=== PATIENT | male | born 1955 | race Caucasian/White ===

== ENCOUNTER 2017-06-26 04:36 | Inpatient (IN) | payer MEDICARE, OTHER ==
[~2017-06-26] VITALS: Ht 198.1 cm; Wt 137.0 kg
[~2017-06-26 04:36] MED LIST: ACTOS30 MG PO; ALBUTEROL0.09 MG/A1 IH; ASPIRIN 81MG TA81 MG PO; ASPIRIN EC325 MG PO; BAYER ASPIRIN R81 MG PO; BUPROPION75 MG PO; CEFUROXIME500 MG PO; COREG6.25 MG PO; COUMADIN5 MG PO; DIAZEPAM10 MG PO; EFFIENT10 M2 PO; HUMALOG KW100 UNIT/1 SQ; HUMALOG MIX 50/53 ML SC; HUMALOG PEN100 U/ML SC; LANTUS SOLOS100 U/ML SC; LEVAQUIN500 MG PO; LIPITOR40 MG PO; LOVENOX 150150 MG/ML SC; NITRO-DUR0.4 MG/HR TD; Novolog100 U/ML SC; OXYCONTIN 20MG.20 MG PO; OXYCONTIN60 M1 PO; PERCOCET 10 MG1 EACH PO; PERCOCET1 TA1 PO; PREDNISONE 20MG20 MG PO; WELLBUTRIN 150150 MG PO; ZOLOFT100 MG PO; ZYVOX600 MG PO
[2017-06-26 04:44] VITALS: BP 102/43
[2017-06-26 05:24] LABS: LYMPH # 1.3 K/mm3 (0.7-4.5); LYMPH % 9.2 % (10-50)
[2017-06-26 05:35] LABS: HEMOGLOBIN 13.9 g/dL (14.1-18.0)
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
--- NOTE | 2017-06-26 07:54 | RADIOLOGY REPORT PS360 ---
CHEST-PORTABLE COMPARISON: Oral upright chest 03/01/2015 HISTORY: Shortness of breath TECHNIQUE: Portable upright chest FINDINGS: The lung lowe are well expanded. There are somewhat coarsened bronchovascular markings in right perihilar region and right lower lobe probably representing chronic change and/or post inflammatory scarring. Would be difficult to rule out a minimal superimposed pneumonic infiltrate. The right upper lung field and cardiac size is normal, there is no significant pulmonary congestion. Left lung are clear. IMPRESSION: Probable chronic changes right base though difficult to exclude minimal diffuse pneumonic infiltrate and suggest clinical correlation
[2017-06-26 08:33] VITALS: BP 117/71
--- NOTE | 2017-06-26 09:06 | PHARMACY CLINIC NOTE ---
Patient Demographics Patient Demographics Admission date: 06/26/17 Date: 06/26/17 Time: 905 Allergies Coded Allergies: No Known Allergies (11/10/15) HEIGHT- FT: 6 IN: 4.00 K.987 VTE General Information Labs: Laboratory Tests 06/26 0509 Hematology Hgb (14.1 - 18.0 g/dL) 13.9 L Hct (42.0 - 52.0 %) 46.6 Plt Count (142 - 424 K/mm3) 263 Disclaimer The following section includes nursing documentation that has been pulled in for pharmacy review. VTE prophylaxis NQF [id number] VTE prophylaxis ordered? Yes Type of prophylaxis/treatment: SARAH at 0906
[2017-06-26] MEDS ORDERED: ROPINIROLE HYD0.5 MG PO (09:09)
[2017-06-26] MEDS ORDERED: ZOLPIDEM 10MG T10 MG PO (09:09)
[2017-06-26] MEDS ORDERED: FLUOXETINE HYDR20 MG PO (09:09)
[2017-06-26 10:18] LABS: URINE BILIRUBIN - DIPSTICK NEGATIVE (NEG); URINE BLOOD NEGATIVE (NEG)
--- NOTE | 2017-06-26 15:42 | RADIOLOGY REPORT PS360 ---
CARDIAC CATHETERIZATION DATE OF CATHETERIZATION:06/26/2017 9:41 AM PROCEDURES: 1. Left heart catheterization 2. Left ventriculogram 3. Selective coronary angiogram 4. Drug-eluting stent deployment to the diagonal artery 5. Drug-eluting stent deployment to the proximal LAD 6. Endotracheal intubation 7. Right femoral venous central line placement 8. Left femoral arterial access 9. Placement of intra-aortic balloon pump 10. Critical care 83 minutes INDICATION FOR TEST: 1. Cardiogenic shock 2. Acute myocardial infarction 3. Coronary artery disease 4. Acute respiratory failure 5. Cardiac arrest 62-year-old gentleman presents to the emergency department several days into an acute myocardial infarction with troponin level 66. 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 Patient's right coronary artery was subtotally occluded along with his first obtuse marginal artery. ABBE II was occurring down the LAD system and patient had critical disease in a very large diagonal artery. Because of patient's critical presentation and cardiogenic shock coronary intervention was planned. Patient had a Ambriz catheter in place that artery received IV Lasix and was experiencing a diuresis of 700 cc since: Catheter placement. Informed consent was obtained prior to the procedure. COMPLICATIONS: C report below ESTIMATED BLOOD LOSS: Less than 10 ml. TECHNIQUE: One percent lidocaine was used to anesthetize the right groin. The right femoral artery was accessed via the Seldinger technique. A 4 Salvadorean sheath was placed in the right femoral artery and over 3 J-wire a JL 4 JR4 JL 5 catheter were used perform diagnostic left heart catheterization left ventriculogram angiography. Patient's ejection fraction measured 10-15% he had a left ventricular end-diastolic pressure in excess of 40 mmHg. 12,000 units of heparin was administered intravenously and an EBU for guide catheter was placed in the left main artery with a choice PT extra-support wire into the first diagonal artery. Because the mid LAD had a critical lesion which extended all the way back to the ostium of this very large bifurcating diagonal artery I felt that trying to critically revascularize the diagonal artery would be more beneficial because I anticipated mid LAD stent would encroach on the mouth this large diagonal artery and possibly even jailed the diagonal artery. Because of this the wire was placed into the diagonal artery specifically the superior branch. Patient's blood pressure was now 60/40 and a 2 mm x 12 mm balloon was inflated in the diagonal artery at 20 marv followed by a 2.25 x 18 mm resolute Damian stent deployed at 20 marv. The ostium of this vessel was not tagged therefore an additional 2.25 x 8 mm resolute Dexter stent was placed proximally and deployed at 20 marv. The wire was pulled back and placed into the inferior branch of the diagonal artery and the same balloon was advanced and predilated at 15 mmHg. A 2.5 x 15 mm resolute Dexter stent is then deployed at 20 marv in this branch reducing the stenosis. At this time patient was losing his pressure he started having slow flow down the coronary arteries and started experiencing desaturations. 1 mg of epinephrine was administered intravenously. I was in forced to break scrub and endotracheally intubate the patient with an 8.0 ET tube using a Feliz blade. Intubation was achieved on the first attempt and placement was confirmed using fluoroscopy. At this point respiratory to go over and started ventilating the patient. Patient continued to experience demise and required an extensive resuscitative effort including bouts of ventricular fibrillation ventricular tachycardia. He received numerous rounds of chest compressions as well as accelerating and very high doses of epinephrine. A blood pressure was then obtained and it was decided to transport patient to [facility] for possible LVAD consideration or percutaneous left ventricular assist device placement. We were notified air care would take 60 minutes before arriving therefore I decided to try to revascularize the LA the left femoral artery was accessed via the central technique and a 6 Salvadorean sheath was placed in the left femoral artery. A JL 4 guide catheter was placed into the left main artery and a choice PT wire was placed into the diagonal artery. Patient had ABBE I and ABBE II down the LAD system. A 3 mm x 18 mm resolute Dexter stent was placed proximally in hopes of improving some of the blood flow however this was ineffective. Despite multiple attempts patient continued to degenerate requiring cardiopulmonary resuscitation. Multiple blood gases were submitted, multiple doses of epinephrine and sodium bicarbonate were administered but despite all efforts patient clearly was going to see comment to has cardiogenic shock. With the blood pressure of 50 millimeters of mercury I requested the family come directly into the [employer] and pain there last respects to the patient while he was still alive with a heart beat and pulse. Patient's family came into bedside and patient approximately 10 minutes later. ANGIOGRAPHIC RESULTS: 1. The left main artery normal 2. The left anterior descending artery proximal 60% concentric stenosis with critical 99% mid vessel stenosis immediately after a very large diagonal artery. ABBE II flow is present down the LAD. The first diagonal artery is a very large vessel and branches into superior and inferior branch. The superior branch has a proximal 99% stenosis while the inferior branch has a proximal 80% stenosis. 3. The circumflex artery is nondominant and has proximal 30% stenosis with all proximal and mid obtuse marginal arteries occluded. There is a very small terminal obtuse marginal artery supplying a small amount of myocardium 4. The right coronary artery is a dominant vessel and has proximal 40% mid vessel 60% stenoses and is then subtotally occluded after an RV marginal branch. 5. The SHI ventriculogram reveals severe left ventricular dilatation ejection fraction 15% 6. The left ventricular end-diastolic pressure critically elevated at 40 mmHg IMPRESSION: 1. Cardiogenic shock with diffuse ischemic cardiomyopathy 2. Drug-eluting stent deployment to the proximal LAD 3. Drug-eluting stent deployment to the first diagonal artery 4. Successful endotracheal intubation 5. Successful placement of intra-aortic balloon pump 6. Successful placement of left femoral arterial access 7. Successful placement of right femoral venous central access 8. Patient due to his critical ischemic disease PLAN: 1. Postmortem care of the body
--- OUTSIDE RECORDS SUMMARY | 2017-07-03 02:13 | External Medical Summary Rpt | CCD ---
Author Author , LUKE BUTLER Address Unknown Phone .[email or web address] Care Team Providers Care Community Service Officer Name Role Phone Sally Rockwell MD, Unavailable Unavailable Sally Rockwell MD Purpose Continuity of Care Document - 02-06-2013 through 2016 Problems Code Diagnosis DOS Provider Status 944.25 944.25 2ND 02-06-2013 [place] DEG BURN [facility] E849.8 E849.8 02-06-2013 [place] ACCIDENT IN [facility] E924.2 E924.2 [facility] 02-06-2013 [place] BOILING TAP [facility] Allergies, Adverse Reactions, Alerts Type Allergy to substance Adverse Reaction to Substance Substance Reaction Severity NO KNOWN ALLERGIES Unknown Unknown Medications Na ND Rx Da Fi Fi Am Da Di Ph RX Ph St me C No te ll ll ou ys ag ar # ys at rm s nt no ma ic us Or Da si cy ia de te s n re d SI 61 05 0 No LV 57 -1 AD 00 9- Lo EN 13 20 ng E 14 13 er 1% 0 Ac CR ti EA ve M AD 49 05 0 No AC 28 -1 EL 10 9- Lo 40 20 ng TD 01 13 er AP 0 Ac ti AL ve KE 00 05 0 No TO 40 -1 RO 93 9- Lo LA 79 20 ng C 60 13 er 60 1 Ac MG ti /2 ve ML AL Vital Signs 02-06-2013 20:22 Name Value Interpretat Reference Comment ion Range Body 98.5 [degF] Temperature BP 102 mm[Hg] Diastolic BP Systolic 151 mm[Hg] Heart 73 /min Rate/Pulse O2% 97 % Respiratory 18 /min Rate 02-06-2013 19:56 Name Value Interpretat Reference Comment ion Range BP 74 mm[Hg] Diastolic BP Systolic 141 mm[Hg] Heart 75 /min Rate/Pulse O2% 94 % Respiratory 20 /min Rate Encounters Encounter Start End Date Code Location Performer Type Date Emergency NAYELY Rockwell MD (ER) 3 19:20 3 20:24 [facility]
--- OUTSIDE RECORDS SUMMARY | 2017-07-03 02:13 | External Medical Summary Rpt | CCD ---
Author Author , LUKE BUTLER Address Unknown Phone [email or web address] Providers Care Care Giver Name Role Phone Sally Rockwell MD, Unavailable Unavailable Sally Rockwell MD Purpose Continuity of Care Document - 02-06-2013 through 2016 Problems Code Diagnosis DOS Provider Status 944.25 944.25 2ND 02-06-2013 [place] DEG BURN [facility] E849.8 E849.8 02-06-2013 [place] ACCIDENT IN [facility] E924.2 E924.2 [facility] 02-06-2013 [place] BOILING TAP [facility] Allergies, Adverse Reactions, Alerts Type Allergy to [...] Rockwell MD (ER) 3 19:20 3 20:24 [facility]
--- OUTSIDE RECORDS SUMMARY | 2017-07-03 02:13 | External Medical Summary Rpt | CCD ---
Demographics Home Phone Preferred Language Citizen Of [place] Marital Status Unknown Sikh Affiliation Unknown Race Unknown Ethnic Group Unknown Author Author , LUKE BUTLER Address Unknown Phone [email or web address] Immunization Name Date Rout CVX Reac Dose Comm Prov Is Faci e tion ent ider Refu lity Give sed n Infl 09-2 Intr 999 Hist D203 No D203 uenz 8-20 amus oric 77 77 a 16 cula al Quad r Info rmat W/Pr ion es - Sour ce Unsp ecif ied TST- 11-2 Intr 96 999 Hist WOOD No WOOD PPD 8-20 ader oric RAVINDRA RAVINDRA intr 15 mal al ASSN ASSN ader Info mal rmat ion - Sour ce Unsp ecif ied Infl 09-1 Intr 999 Hist D203 No D203 uenz 4-20 amus oric 77 77 a 15 cula al Quad r Info rmat W/Pr ion es - Sour ce Unsp ecif ied Infl 09-1 Intr 999 Hist D203 No D203 uenz 9-20 amus oric 77 77 a 14 cula al Quad r Info rmat W/Pr ion es - Sour ce Unsp ecif ied
--- OUTSIDE RECORDS SUMMARY | 2017-07-03 02:13 | External Medical Summary Rpt | CCD ---
Demographics Home Phone Preferred Language Grenadian Marital Status Unknown Presybeterian Affiliation Unknown Race Unknown Ethnic Group Unknown Author Author , LUKE BUTLER Address Unknown Phone [email or web address] Immunization Name Date Rout CVX Reac Dose [...]
--- OUTSIDE RECORDS SUMMARY | 2017-07-03 02:13 | External Medical Summary Rpt ---
Author Author LUKE Alston, [employer] Address Unknown Phone Unavailable
--- OUTSIDE RECORDS SUMMARY | 2017-07-03 02:13 | External Medical Summary Rpt | CCD ---
Author Author [employer] Organization [employer] Address Unknown Phone Unavailable Purpose Continuity of Care Document - through 2016
--- OUTSIDE RECORDS SUMMARY | 2017-07-03 02:27 | External Medical Summary Rpt | CCD ---
Author Author , LUKE BUTLER Address Unknown Phone [email or web address] Care Team Providers Care Assembler Fishing Floats Name Role Phone Sally Rockwell MD, Unavailable Unavailable Sally Rockwell MD Purpose Continuity of Care Document - 02-06-2013 through 2016 Problems Code Diagnosis DOS Provider Status 944.25 944.25 2ND 02-06-2013 [place] DEG BURN [facility] E849.8 E849.8 02-06-2013 [place] ACCIDENT IN [facility] E924.2 E924.2 [facility] 02-06-2013 [place] BOILING TAP [facility] Allergies, Adverse Reactions, Alerts Type Allergy [...] Rockwell MD (ER) 3 19:20 3 20:24 [facility]
--- OUTSIDE RECORDS SUMMARY | 2017-07-03 02:27 | External Medical Summary Rpt | CCD ---
Demographics Home Phone Preferred Language Bermudian Marital Status Unknown Oriental Orthodox Affiliation Unknown Race Unknown Ethnic Group Unknown Author Author , LUKE BUTLER Address Unknown Phone [email or web address] Immunization Name Date Rout CVX Reac Dose [...]
--- OUTSIDE RECORDS SUMMARY | 2017-07-03 02:27 | External Medical Summary Rpt | CCD ---
Demographics Home Phone Preferred Language Vietnamese Marital Status Unknown Scientology Affiliation Unknown Race Unknown Ethnic Group Unknown Author Author , LUKE BUTLER Address Unknown Phone [email or web address] Immunization Name Date Rout CVX Reac Dose [...]
--- OUTSIDE RECORDS SUMMARY | 2017-07-03 02:27 | External Medical Summary Rpt | CCD ---
Author Author , LUKE BUTLER Address Unknown Phone [email or web address] Care Team Providers Care Opto Mechanical Technician Name Role Phone Sally Rockwell MD, Unavailable Unavailable Sally Rockwell MD Purpose Continuity of Care Document - 02-06-2013 through 2016 Problems Code Diagnosis DOS Provider Status 944.25 944.25 2ND 02-06-2013 [place] DEG BURN [facility] E849.8 E849.8 02-06-2013 [place] ACCIDENT IN [facility] E924.2 E924.2 [facility] 02-06-2013 [place] BOILING TAP [facility] Allergies, Adverse Reactions, Alerts Type Allergy to [...] Rockwell MD (ER) 3 19:20 3 20:24 [facility]
== END 2017-06-26 15:45 | disposition expired ==
LOC: ER 04:36 → 2ND 07:34
PROVIDERS: Emergency Medicine; Internal Medicine
DX: I21.4 Non-ST elevation (NSTEMI) myocardial infarction (principal); L97.419 Non-pressure chronic ulcer of right heel and midfoot with unspecified severity; E11.22 Type 2 diabetes mellitus with diabetic chronic kidney disease; E11.621 Type 2 diabetes mellitus with foot ulcer; I50.9 Heart failure, unspecified; Z95.5 Presence of coronary angioplasty implant and graft; I12.9 Hypertensive chronic kidney disease with stage 1 through stage 4 chronic kidney disease, or unspecified chronic kidney disease; N18.3 Chronic kidney disease, stage 3 (moderate); Z79.4 Long term (current) use of insulin; I25.2 Old myocardial infarction
CPT/HCPCS: C1725; C1769; C1876; C1894; J0282; J1644; J7060; Q9967